=== PATIENT | male | born 1995 | race African-American/Black ===

== ENCOUNTER 2025-05-22 23:53 | Emergency (ER) | payer MEDICAID ==
[~2025-05-22] VITALS: Ht 175.3 cm; Wt 64.0 kg
[2025-05-23 00:13] VITALS: O2SAT 100
[2025-05-23] MEDS ORDERED: DOXY-461 MT (01:10)
[2025-05-23] MEDS: CEFTRIAXONE SODIUM 500MG VIAL IM ONE (01:26)
[2025-05-23] MEDS: DOXYCYCLINE HYCLATE 100MG CAPSULE PO ONE (01:26)
[2025-05-23 01:27] LABS: CLARITY URINE CLOUDY (CLEAR); COLOR URINE YELLOW (YELLOW); GLUCOSE URINE NEGATIVE (NEGATIVE); KETONES URINE TRACE (NEGATIVE); LEUKOCYTE ESTERASE URINE 2+ (NEGATIVE); NITRITE URINE NEGATIVE (NEGATIVE); OCCULT BLOOD URINE NEGATIVE (NEGATIVE); PH URINE 8.0 (4.5-8.0); PROTEIN URINE TRACE (NEGATIVE); SPECIFIC GRAVITY URINE 1.028 (1.005-1.030); UROBILINOGEN URINE 1.0 E.U./dL (0.2-1.0)
[2025-05-23 01:40] VITALS: BP 148/82; PULSE 85; RESP 12; TEMP 36.8; O2SAT 100
[2025-05-23 06:18] LABS: RBC URINE 0-2 /hpf (0-2); SQUAMOUS EPITHELIAL CELL URINE NONE SEEN /lpf (RARE/1+)
[2025-05-23 06:20] LABS: BACTERIA URINE TRACE
== END 2025-05-23 01:42 | disposition home or self-care (01) ==
LOC: ER 23:53
DX: R36.9 Urethral discharge, unspecified (principal)
CPT/HCPCS: 99283; 81003; 96372; J0696; Z7610 ×2